=== PATIENT | female | born 1960 | race Caucasian/White ===

== ENCOUNTER 2016-12-28 08:00 | Outpatient (CLI) | payer MEDICAID | END 2016-12-28 23:59 | disposition home or self-care (01) | DX: R30.0 Dysuria (principal) ==

== ENCOUNTER 2016-12-29 09:03 | Outpatient (CLI) | payer MEDICAID | END 2016-12-29 09:04 | disposition home or self-care (01) | DX: R30.0 Dysuria (principal); R19.7 Diarrhea, unspecified; E11.41 Type 2 diabetes mellitus with diabetic mononeuropathy ==

== ENCOUNTER 2017-03-14 09:21 | Outpatient (CLI) | payer MEDICAID | END 2017-03-14 09:22 | disposition home or self-care (01) | DX: I10 Essential (primary) hypertension (principal); E78.5 Hyperlipidemia, unspecified; R30.0 Dysuria; E11.41 Type 2 diabetes mellitus with diabetic mononeuropathy ==

== ENCOUNTER 2017-03-27 14:51 | Outpatient (CLI) | payer MEDICAID ==
--- NOTE | 2017-03-28 11:59 | XRAY Report ---
THREE VIEWS OF THE CERVICAL SPINE: 03/27/2017 CLINICAL HISTORY: Chronic neck pain, back pain. COMPARISON: Cervical spine MRI 09/21/2016. FINDINGS: Cervical spine is seen down to C7-T1 level on lateral view without significant subluxation . Mild anterior spurring is noted at C4. Sthv-nr-fzexgqme anterior spurring is noted at C5. Mild-t o-moderate anterior spurring is noted at the adjacent surfaces of C6-7. Minimal anterior disk space narrowing is noted at the C6-7 level. Mild narrowing is noted between the odontoid process and the a nterior arch of C1. Minimal spurring is noted at the superior tip of the odontoid process and superi or aspect of the adjacent arch of C1. Minimal spurring is noted at the uncinate processes of C5 and C6. Mild vascular calcification is noted at the right carotid artery bifurcation. No significant change is noted as compared to cervical spine MRI of 09/21/2016. IMPRESSION: MILD OSTEOARTHRITIS OF THE C-SPINE WITHOUT CHANGE NOTED COMPARED TO 09/21/2016. JOB #: [id number] EXT JOB #:[id number]
--- NOTE | 2017-03-28 12:29 | XRAY Report ---
THREE-VIEW LUMBAR SPINE, AP, LATERAL, CONED-DOWN LATERAL VIEW OF L5-S1: 03/27/2017 CLINICAL HISTORY: Chronic back pain. COMPARISON: 02/02/2015 CT of the abdomen and pelvis. FINDINGS: Surgical clips are seen in the right upper quadrant of the abdomen relating to a prior cho lecystectomy. Vascular calcification is noted in the abdominal aorta and its iliac branches. Curvil inear calcified sutures are seen to the left side of the lower thoracic spine related to patient's pr ior gastric bypass surgery. Five non-rib bearing lumbar-type vertebrae are noted. Mild anterior spurring is detected in the lumb ar spine. Mild posterior spur formation is seen at L3-4. Minimal spondylolisthesis is noted at L4-5 . This amounts to 2 mm. It is related to osteoarthritis of the facet joints at this level. There i s a suggestion of a moderate degree of osteoarthritis at the facet joints at L5-S1. Mild osteoarthritis is seen at the right SI joint with uchr-ze-pzfxnlkh narrowing of this SI joint an d slight sclerosis noted along the iliac side of the SI joint. Mild progression is noted in the oste oarthritis of the lumbar spine as compared to patient's abdominal and pelvic CT exam of 02/02/2015. On today's exam, patient shows slightly more anterior spur formation. Also, there is mild increased osteoarthritis at the L4-5 and L5 facet joints and there is now minimal spondylolisthesis at L4-5. IMPRESSION: 1. MILD OSTEOARTHRITIS OF THE LUMBAR SPINE IS SEEN WITH MINIMAL PROGRESSION COMPARED TO 5. 2. MINIMAL SPONDYLOLISTHESIS IS NOTED AT L4-5. THIS IS RELATED TO OSTEOARTHRITIS OF THE FACET JOINT S. JOB #: [id number] EXT JOB #:[id number]
--- NOTE | 2017-03-28 14:11 | XRAY Report ---
THORACIC SPINE, TWO VIEWS: 03/27/2017 CLINICAL HISTORY: Chronic back pain. COMPARISON: None. FINDINGS: Anterior spurring is detected especially in the voe-oo-ycvxx thoracic spine with bridging osteophytes. No significant disk space narrowing is seen. No compression fractures are noted. Curvilinear calcifications are seen adjacent to the left transverse process of T12 and L1. These represent calcified sutures related to patient's prior gastric bypass surgery. IMPRESSION: 1. OSTEOARTHRITIS OF THE THORACIC SPINE IS SEEN PRIMARILY MANIFESTED BY BRIDGING OSTEOPHYTES BOTH ANTERIORLY AND LATERALLY. 2. CURVILINEAR CALCIFICATIONS ARE NOTED ADJACENT TO THE LEFT TRANSVERSE PROCESS OF T12 AND L1. THESE ARE CALCIFIED SUTURES RELATED TO PATIENT'S PRIOR GASTRIC BYPASS SURGERY. [facility]
== END 2017-03-27 14:52 | disposition home or self-care (01) ==
LOC: DI 14:51
PROVIDERS: ATTEND Nurse Practitioner Family
DX: M47.892 Other spondylosis, cervical region (principal); M47.896 Other spondylosis, lumbar region; M47.897 Other spondylosis, lumbosacral region; M43.12 Spondylolisthesis, cervical region; M47.894 Other spondylosis, thoracic region
CPT/HCPCS: 72040; 72070; 72100

== ENCOUNTER 2017-04-06 11:21 | Outpatient (CLI) | payer MEDICAID | END 2017-04-06 11:22 | disposition home or self-care (01) | DX: D53.9 Nutritional anemia, unspecified (principal) ==

== ENCOUNTER 2017-05-01 08:25 | Outpatient (CLI) | payer MEDICAID ==
[2017-05-01 10:17] LABS: BASOPHILS % (AUTO) 0.7 %; EOSINOPHILS # (AUTO) 0.2 10^3/uL (0.0-0.7); EOSINOPHILS % (AUTO) 3.6 %; HCT - HEMATOCRIT 34.2 % (37.0-47.0); HGB - HEMOGLOBIN 10.9 g/dL (12.0-16.0); LYMPHOCYTES # (AUTO) 1.7 10^3/uL (1.5-3.5); LYMPHOCYTES % (AUTO) 26.4 %; MEAN CORPUSCULAR HEMOGLOBIN 23.9 pg (27.0-31.0); MEAN CORPUSCULAR HGB CONC 31.9 g/dL (32.0-36.0); MEAN PLATELET VOLUME 10.1 fL (7.9-10.8); MONOCYTES # (AUTO) 0.6 10^3/uL (0.0-1.0); MONOCYTES % (AUTO) 9.7 %; NEUTROPHILS # (AUTO) 3.7 10^3/uL (1.5-6.6); NEUTROPHILS % (AUTO) 59.6 %; RED BLOOD COUNT 4.57 10^6/uL (4.20-5.40); RED CELL DISTRIBUTION WIDTH 18.5 % (12.0-15.0); UNCORRECTED WHITE BLOOD COUNT 6.3 x10^3/uL; WHITE BLOOD COUNT 6.3 x10^3/uL (4.8-10.8)
[2017-05-01 10:51] LABS: IRON 56 ug/dL (28-170); TOTAL IRON BINDING CAPACITY 370 ug/dL (250-450); TRANSFERRIN 264 mg/dL (192-382)
== END 2017-05-01 08:26 | disposition home or self-care (01) ==
LOC: LAB.S 08:25
PROVIDERS: ATTEND Nurse Practitioner Family
DX: D53.9 Nutritional anemia, unspecified (principal)
CPT/HCPCS: 36415; 82728; 83540; 84466; 85025

== ENCOUNTER 2017-05-18 13:45 | Outpatient (CLI) | payer MEDICAID ==
[2017-05-18 18:11] LABS: BILIRUBIN,URINE NEGATIVE (NEGATIVE); PH,URINE 5.5 PH (5.0-7.5)
[2017-05-18 18:30] LABS: UR CULTURE IF IND NOT INDICATED; WBC,URINE 0-3 /HPF (0-5)
== END 2017-05-18 13:46 | disposition home or self-care (01) ==
LOC: LAB.R 13:45
PROVIDERS: ATTEND Nurse Practitioner Family
DX: R30.0 Dysuria (principal)
CPT/HCPCS: 81001; 87086

== ENCOUNTER 2017-06-07 14:32 | Outpatient (CLI) | payer MEDICAID ==
[2017-06-07 18:05] LABS: BASOPHILS % (AUTO) 0.5 %; EOSINOPHILS # (AUTO) 0.2 10^3/uL (0.0-0.7); EOSINOPHILS % (AUTO) 3.5 %; HCT - HEMATOCRIT 37.4 % (37.0-47.0); HGB - HEMOGLOBIN 11.9 g/dL (12.0-16.0); LYMPHOCYTES % (AUTO) 27.9 %; MEAN CORPUSCULAR HEMOGLOBIN 25.3 pg (27.0-31.0); MEAN CORPUSCULAR HGB CONC 31.7 g/dL (32.0-36.0); MEAN CORPUSCULAR VOLUME 79.8 fL (81.0-99.0); MONOCYTES # (AUTO) 0.4 10^3/uL (0.0-1.0); MONOCYTES % (AUTO) 5.7 %; NEUTROPHILS # (AUTO) 4.5 10^3/uL (1.5-6.6); NEUTROPHILS % (AUTO) 62.4 %; RED BLOOD COUNT 4.69 10^6/uL (4.20-5.40); RED CELL DISTRIBUTION WIDTH 20.5 % (12.0-15.0); UNCORRECTED WHITE BLOOD COUNT 7.1 x10^3/uL; WHITE BLOOD COUNT 7.1 x10^3/uL (4.8-10.8)
[2017-06-07 18:23] LABS: IRON 45 ug/dL (28-170); TOTAL IRON BINDING CAPACITY 311 ug/dL (250-450); TRANSFERRIN 222 mg/dL (192-382)
[2017-06-07 18:30] LABS: PLATELET ESTIMATE, MANUAL NORMAL (130-450,000) (NORMAL); PLATELET MORPHOLOGY NORMAL APPEARANCE (NORMAL); WBC MORPHOLOGY (MULTIPLE) NORMAL APPEARANCE (NORMAL)
== END 2017-06-07 14:33 | disposition home or self-care (01) ==
LOC: LAB.F 14:32
PROVIDERS: ATTEND Nurse Practitioner Family
DX: D53.9 Nutritional anemia, unspecified (principal)
CPT/HCPCS: 36415; 82728; 83540; 84466; 85025

== ENCOUNTER 2017-07-03 15:37 | Emergency (ER) | payer MEDICAID ==
[2017-07-03 15:53] VITALS: BP 144/85
--- NOTE | 2017-07-03 16:33 | ED Physician Documentation ---
History of Present Illness - Stated complaint Stated Complaint: RECTAL BLEED - Chief complaint Chief Complaint: General - History obtained from History obtained from: Patient - History of Present Illness Timing: Other (56-year-old woman with history of gastric bypass in 2008 at [facility], had grossly negative colonoscopy with poor prep in 2013. Recently has been getting iron infusions for anemia without clear GI bleeding. Today had small amount of bright red blood per rectum twice.) Review of Systems Constitutional: denies: Fever, Chills GI: reports: Abdominal Pain (preceding the bleeding, brief), Bloody / black stool. 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 HEENT: Tonsil/Adenoidectomy - Present Medications Home Medications: Ambulatory Orders Medication Instructions Recorded Confirmed Insulin Glargine,Hum.rec.anlog 24 unit SQ QDDINNER 08/12/14 06/29/17 [Lantus] Lisinopril [Prinivil] 20 mg PO DAILY 08/12/14 06/29/17 Amlodipine Besylate 5 mg PO DAILY 09/30/14 06/29/17 Cholecalciferol (Vitamin D3) 10,000 unit PO DAILY 09/30/14 06/29/17 [Vitamin D3] Pramipexole Di-HCl [Mirapex] 0.5 mg PO DAILY 09/30/14 06/29/17 Insulin Lispro [Humalog] 2 - 5 unit SQ TIDWM 02/18/15 06/29/17 Lidocaine Patch 5% [Lidoderm Patch] 1 each TOP DAILY #10 patch 10/31/16 06/29/17 Albuterol Sulfate [Proair Hfa 8.5 gm IH QID PRN 04/19/17 06/29/17 Inhaler] - Allergies Allergies/Adverse Reactions: Allergies Allergy/AdvReac Type Severity Reaction Status Date / Time hydromorphone HCl * Allergy Intermediate Nausea/Vomi Verified 07/03/17 15:53 [From Dilaudid] ting morphine Allergy Intermediate Nausea/Vomm Verified 07/03/17 15:53 iting Sulfa (Sulfonamide Allergy Mild Rash/Itchy Verified 07/03/17 15:53 Antibiotics) Penicillins Allergy Unknown Unknown Verified 07/03/17 15:53 eggplant Allergy Intermediate Hives Uncoded 07/03/17 15:53 mosotho cheese Allergy Intermediate Hives Uncoded 07/03/17 15:53 wheat Allergy Intermediate Hives Uncoded 07/03/17 15:53 - Social History Does the pt smoke?: No Smoking Status: Never smoker Does the pt drink ETOH?: No Does the pt have substance abuse?: No - Immunizations Immunizations are current?: Yes - POLST Patient has POLST: No PD ED PE NORMAL - Vitals Vital signs reviewed: Yes - General General: Alert and oriented X 3, No acute distress - Abdomen Abdomen: Normal bowel sounds, Soft, Non tender - Rectal Rectal: Other (deferred as she shows me a small amt of blood on TP) - Derm Derm: No rash - Neuro Neuro: Alert and oriented X 3, Normal speech - Psych Psych: Normal mood, Normal affect Results - Vitals Vitals: Vital Signs - 24 hr 07/03/17 15:48 Temperature 36.2 C L Heart Rate 75 Respiratory 20 Rate Blood Pressure 144/85 H O2 Saturation 99 Oxygen O2 Source Room air - Labs Labs: Laboratory Tests 07/03/17 07/03/17 07/03/17 16:38 16:38 16:38 WBC 6.4 RBC 4.76 Hgb 12.2 Hct 38.0 MCV 79.9 L MCH 25.7 L MCHC 32.2 RDW 19.1 H Plt Count 178 MPV 9.2 Neut # 3.4 Lymph # 2.2 Jefferson # 0.4 Eos # 0.3 Baso # 0.1 Absolute Nucleated RBC 0.00 Nucleated RBCs 0.0 PT 10.7 INR 0.9 Sodium 137 Potassium 3.7 Chloride 101 Carbon Dioxide 29 Anion Gap 7.0 BUN 14 Creatinine 0.6 Estimated GFR (MDRD) 103 Glucose 283 H Calcium 9.4 Total Bilirubin 0.3 AST 26 ALT 27 Alkaline Phosphatase 86 Total Protein 7.5 Albumin 4.0 Globulin 3.5 Albumin/Globulin Ratio 1.1 Lipase 39 PD MEDICAL DECISION MAKING - ED course ED course: 56-year-old woman with history of gastric bypass with a small amount of GI bleeding, lower by description, and visibly small, she is hemodynamically stable with an H&H that is better than recent prior values. Departure - Departure Disposition: 01 Home, Self Care Clinical Impression: History of gastric bypass, Hematochezia, Diabetes 1.5, managed as type 1 Condition: Good Record reviewed to determine appropriate education?: Yes Instructions: ED Hematochezia Stable Follow-Up: Eric Khoury MD [Provider Admit Priv/Credential] - Comments: RETURN FOR HEAVIER BLEEDING. FOLLOWUP WITH DR KHOURY FOR EVALUATION FOR POTENTIAL COLONOSCOPY. Your blood pressure was elevated today on check into the emergency department. This does not mean that you have hypertension, it is a common phenomenon to come to the emergency department and have elevated blood pressure. I recommend that she see her primary care physician within the week to have it rechecked when you are feeling better.
[2017-07-03 16:53] LABS: BASOPHILS # (AUTO) 0.1 10^3/uL (0.0-0.1); BASOPHILS % (AUTO) 1.5 %; EOSINOPHILS # (AUTO) 0.3 10^3/uL (0.0-0.7); EOSINOPHILS % (AUTO) 4.8 %; HGB - HEMOGLOBIN 12.2 g/dL (12.0-16.0); LYMPHOCYTES # (AUTO) 2.2 10^3/uL (1.5-3.5); LYMPHOCYTES % (AUTO) 34.8 %; MEAN CORPUSCULAR HEMOGLOBIN 25.7 pg (27.0-31.0); MEAN CORPUSCULAR HGB CONC 32.2 g/dL (32.0-36.0); MEAN CORPUSCULAR VOLUME 79.9 fL (81.0-99.0); MEAN PLATELET VOLUME 9.2 fL (7.9-10.8); MONOCYTES # (AUTO) 0.4 10^3/uL (0.0-1.0); NEUTROPHILS # (AUTO) 3.4 10^3/uL (1.5-6.6); NEUTROPHILS % (AUTO) 52.9 %; RED BLOOD COUNT 4.76 10^6/uL (4.20-5.40); RED CELL DISTRIBUTION WIDTH 19.1 % (12.0-15.0); UNCORRECTED WHITE BLOOD COUNT 6.4 x10^3/uL; WHITE BLOOD COUNT 6.4 x10^3/uL (4.8-10.8)
[2017-07-03 17:00] LABS: INR 0.9 (0.8-1.2); PT - PROTHROMBIN TIME 10.7 secs (9.9-12.6)
[2017-07-03 17:02] LABS: ALBUMIN/GLOBULIN RATIO 1.1 (1.0-2.2); BILIRUBIN,TOTAL 0.3 mg/dL (0.2-1.0); CALCIUM 9.4 mg/dL (8.5-10.3); CREATININE 0.6 mg/dL (0.4-1.0); POTASSIUM 3.7 mmol/L (3.5-5.0); TOTAL PROTEIN 7.5 g/dL (6.7-8.2)
== END 2017-07-03 17:42 | disposition home or self-care (01) ==
LOC: ED 15:37
DX: K92.1 Melena (principal); E10.9 Type 1 diabetes mellitus without complications; Z79.4 Long term (current) use of insulin; Z98.84 Bariatric surgery status; I10 Essential (primary) hypertension; K21.9 Gastro-esophageal reflux disease without esophagitis; M19.90 Unspecified osteoarthritis, unspecified site
CPT/HCPCS: 36415; 80053; 83690; 85025; 85610; 86850; 86900; 86901; 96365; 99283; J1756

== ENCOUNTER 2018-02-05 08:00 | Outpatient (CLI) | payer MEDICAID ==
[2018-02-05 17:57] LABS: BASOPHILS % (AUTO) 0.5 %; EOSINOPHILS # (AUTO) 0.2 10^3/uL (0.0-0.7); EOSINOPHILS % (AUTO) 3.8 %; HGB - HEMOGLOBIN 13.1 g/dL (12.0-16.0); LYMPHOCYTES # (AUTO) 2.3 10^3/uL (1.5-3.5); LYMPHOCYTES % (AUTO) 39.2 %; MEAN CORPUSCULAR HEMOGLOBIN 27.4 pg (27.0-31.0); MEAN CORPUSCULAR HGB CONC 32.1 g/dL (32.0-36.0); MEAN CORPUSCULAR VOLUME 85.3 fL (81.0-99.0); MEAN PLATELET VOLUME 10.1 fL (7.9-10.8); MONOCYTES # (AUTO) 0.3 10^3/uL (0.0-1.0); MONOCYTES % (AUTO) 5.1 %; NEUTROPHILS % (AUTO) 51.4 %; PLT - PLATELET COUNT 171 10^3/uL (130-450); RED BLOOD COUNT 4.79 10^6/uL (4.20-5.40); RED CELL DISTRIBUTION WIDTH 13.7 % (12.0-15.0); WHITE BLOOD COUNT 5.9 x10^3/uL (4.8-10.8)
[2018-02-05 18:19] LABS: CREATININE,URINE 103.8 mg/dL; MICROALBUM/CREATININE RATIO,UR 12.5 ug/mg (<30.0); MICROALBUMIN,URINE 1.3 mg/dL (0-300.0)
[2018-02-05 18:31] LABS: ALBUMIN 4.2 g/dL (3.2-5.5); ALBUMIN/GLOBULIN RATIO 1.4 (1.0-2.2); ALKALINE PHOSPHATASE 88 IU/L (42-121); ALT ALANINE AMINOTRANSFERASE 50 IU/L (10-60); AST ASPARTATE AMINOTRANSFERASE 29 IU/L (10-42); BILIRUBIN,TOTAL 0.5 mg/dL (0.2-1.0); BUN - BLOOD UREA NITROGEN 12 mg/dL (6-20); CALCIUM 9.3 mg/dL (8.5-10.3); CARBON DIOXIDE - CO2 30 mmol/L (21-32); CHLORIDE 100 mmol/L (101-111); CHOL/HDL RATIO 3.2 (<4.4); CHOLESTEROL 253 mg/dL; CREATININE 0.7 mg/dL (0.4-1.0); GFR - MDRD 86 (>89); GLUCOSE 224 mg/dL (70-100); HDL CHOLESTEROL 79 mg/dL; LDL CHOLESTEROL,CALCULATED 152 mg/dL; LDL/HDL RATIO 1.9 (<4.4); SODIUM 136 mmol/L (135-145); TOTAL PROTEIN 7.2 g/dL (6.7-8.2); VLDL CHOLESTEROL 22 mg/dL
[2018-02-05 19:17] LABS: HB2 TOTAL 13.9 g/dL; HEMOGLOBIN A1C 1.34 g/dL
[2018-02-07 11:42] LABS: % IRON SATURATION 18 % (20-50); IRON 65 ug/dL (28-170); TOTAL IRON BINDING CAPACITY 357 ug/dL (250-450); TRANSFERRIN 255 mg/dL (192-382)
== END 2018-02-05 08:01 | disposition home or self-care (01) ==
LOC: LAB.F 08:00
PROVIDERS: ATTEND Nurse Practitioner Family
DX: E11.41 Type 2 diabetes mellitus with diabetic mononeuropathy (principal); E78.5 Hyperlipidemia, unspecified; F32.9 Major depressive disorder, single episode, unspecified; R53.83 Other fatigue
CPT/HCPCS: 36415; 80053; 80061; 82043; 82570; 83036; 83540; 83721; 84443; 84466; 85025

== ENCOUNTER 2018-05-25 09:39 | Outpatient (CLI) | payer MEDICAID ==
[2018-05-25 17:58] LABS: ALBUMIN 3.8 g/dL (3.2-5.5); ALBUMIN/GLOBULIN RATIO 1.3 (1.0-2.2); ALKALINE PHOSPHATASE 73 IU/L (42-121); ALT ALANINE AMINOTRANSFERASE 39 IU/L (10-60); AST ASPARTATE AMINOTRANSFERASE 32 IU/L (10-42); BILIRUBIN,TOTAL 0.7 mg/dL (0.2-1.0); BUN - BLOOD UREA NITROGEN 12 mg/dL (6-20); CALCIUM 8.9 mg/dL (8.5-10.3); CARBON DIOXIDE - CO2 29 mmol/L (21-32); CHLORIDE 104 mmol/L (101-111); CHOL/HDL RATIO 3.4 (<4.4); CHOLESTEROL 231 mg/dL; CREATININE 0.7 mg/dL (0.4-1.0); GFR - MDRD 86 (>89); GLUCOSE 272 mg/dL (70-100); HDL CHOLESTEROL 68 mg/dL; LDL CHOLESTEROL,CALCULATED 147 mg/dL; LDL/HDL RATIO 2.2 (<4.4); SODIUM 139 mmol/L (135-145); TOTAL PROTEIN 6.7 g/dL (6.7-8.2); VLDL CHOLESTEROL 16 mg/dL
[2018-05-25 18:37] LABS: HB2 TOTAL 12.8 g/dL; HEMOGLOBIN A1C 1.35 g/dL; HEMOGLOBIN A1C % 11.8 % (4.6-6.2)
== END 2018-05-25 09:40 | disposition home or self-care (01) ==
LOC: LAB.F 09:39
PROVIDERS: ATTEND Physician Assistant Medical
DX: E11.41 Type 2 diabetes mellitus with diabetic mononeuropathy (principal); E78.5 Hyperlipidemia, unspecified
CPT/HCPCS: 36415; 80053; 80061; 82043; 83036; 83721

== ENCOUNTER 2019-04-10 12:38 | Outpatient (CLI) | payer SELFPAY ==
[2019-04-10 17:46] LABS: BASOPHILS % (AUTO) 0.6 %; EOSINOPHILS # (AUTO) 0.3 10^3/uL (0.0-0.7); EOSINOPHILS % (AUTO) 4.8 %; HGB - HEMOGLOBIN 12.6 g/dL (12.0-16.0); LYMPHOCYTES # (AUTO) 2.6 10^3/uL (1.5-3.5); LYMPHOCYTES % (AUTO) 37.5 %; MEAN CORPUSCULAR HEMOGLOBIN 27.6 pg (27.0-31.0); MEAN CORPUSCULAR HGB CONC 32.3 g/dL (32.0-36.0); MEAN CORPUSCULAR VOLUME 85.4 fL (81.0-99.0); MEAN PLATELET VOLUME 10.4 fL (7.9-10.8); MONOCYTES # (AUTO) 0.4 10^3/uL (0.0-1.0); MONOCYTES % (AUTO) 6.1 %; NEUTROPHILS # (AUTO) 3.6 10^3/uL (1.5-6.6); PLT - PLATELET COUNT 182 10^3/uL (130-450); RED BLOOD COUNT 4.57 10^6/uL (4.20-5.40); RED CELL DISTRIBUTION WIDTH 13.4 % (12.0-15.0); WHITE BLOOD COUNT 7.1 x10^3/uL (4.8-10.8)
[2019-04-10 17:54] LABS: CALCIUM 9.4 mg/dL (8.5-10.3); CREATININE 0.6 mg/dL (0.4-1.0); MAGNESIUM 2.2 mg/dL (1.7-2.8)
[2019-04-10 18:13] LABS: CREATININE,URINE 124.5 mg/dL; MICROALBUM/CREATININE RATIO,UR 12.9 ug/mg (<30.0); MICROALBUMIN,URINE 1.6 mg/dL (0-300.0)
[2019-04-10 18:54] LABS: HB2 TOTAL 12.8 g/dL; HEMOGLOBIN A1C 1.13 g/dL; HEMOGLOBIN A1C % 10.2 % (4.6-6.2)
== END 2019-04-10 23:59 | disposition home or self-care (01) ==
LOC: LAB.F 12:38
PROVIDERS: ATTEND Physician Assistant Medical
DX: R00.2 Palpitations (principal); E11.41 Type 2 diabetes mellitus with diabetic mononeuropathy; D53.9 Nutritional anemia, unspecified; G25.9 Extrapyramidal and movement disorder, unspecified
CPT/HCPCS: 36415; 80048; 82043; 82570; 82728; 83036; 83735; 85025

== ENCOUNTER 2023-02-20 11:13 | Outpatient (CLI) | payer BC ==
--- NOTE | 2023-02-20 17:45 | DEXA Report ---
PROCEDURE: Dexa Spine and/or Hip INDICATIONS: POST MENOPAUSAL TECHNIQUE: Dual energy x-ray absorptiometry (DXA) was performed on a AB Group System. Regions measur ed are the AP Spine, femoral neck, and if needed forearm. COMPARISON: None. FINDINGS: Lumbar Spine: Bone Mineral Density 1.369 g/cm/cm,T score 1.6, normal Left Femoral Neck: Bone Mineral Density 0.642 g/cm/cm, T score -2.9, osteoporosis Left Hip: Bone Mineral Density 0.809 g/cm/cm,T score -1.6, osteopenia (T score greater or equal to -1.0: NORMAL) (T score from -1.1 to -2.4: OSTEOPENIA) (T score less than or equal to -2.5 to: OSTEOPOROSIS) Impression: Osteoporosis Patients with diagnosis of osteoporosis or osteopenia should have regular bone mineral density assess ment. For those eligible for Medicare, routine testing is allowed once every 2 years. Testing frequ ency can be increased for patients who have rapidly progressing disease or for those who are receivin g medical therapy to restore bone mass. Reviewed by: Kaden Irene MD on 02/20/2023 4:43 PM MARCI Approved by: Kaden Irene MD on 02/20/2023 4:43 PM [email or web address] Station ID: [id number]
--- NOTE | 2023-02-20 18:01 | XRAY Report ---
PROCEDURE: Calcaneus LT INDICATIONS: LEFT FOOT PAIN TECHNIQUE: Two views of the calcaneus were acquired. COMPARISON: FINDINGS: Bones: No fractures or dislocations. No suspicious bony lesions. Posterior and plantar calcaneal s pur Soft tissues: No suspicious calcifications. Achilles tendon appears normal. Calcific atherosclerosi s IMPRESSION: Calcaneal spurring with diffuse calcified atherosclerosis Reviewed by: Kaden Irene MD on 02/20/2023 5:00 PM MARCI Approved by: Kaden Irene MD on 02/20/2023 5:00 PM AKDT Station ID: [id number]
== END 2023-02-20 11:14 | disposition home or self-care (01) ==
LOC: DI 11:13
PROVIDERS: ATTEND Internal Medicine
DX: M77.32 Calcaneal spur, left foot (principal); M81.0 Age-related osteoporosis without current pathological fracture

== ENCOUNTER 2023-03-08 08:57 | Outpatient (CLI) | payer BC ==
--- NOTE | 2023-03-09 10:16 | Mammography Report ---
BILATERAL DIGITAL SCREENING MAMMOGRAM 3D/2D: 03/08/2023 CLINICAL: Routine screening. Comparison is made to exam dated: 09/22/2011 mammogram - [facility]. Both breasts are almost entirely fatty (category a/<25% glandular tissue). There are benign vascular calcifications in both breasts. No significant masses, calcifications, or other findings are seen in either breast. There has been no significant interval change. IMPRESSION: BENIGN There is no mammographic evidence of malignancy. A 1 year screening mammogram is recommended. Based on the Tyrer Cuzick model (a risk assessment model) the patients lifetime risk is 3.8% and her 10 year risk is 1.6%. According to the ACR, ACS, and NCCN guidelines, an annual breast MRI exam edwin g with mammogram is recommended if the patients lifetime risk is 20% or greater. This exam was interpreted at Station ID: [id number]. NOTE: For mammograms, a report in lay terms will be sent to the patient. Approximately 15% of breast malignancies will not be visualized mammographically. In the management of a palpable breast mass, a negative mammogram must not discourage biopsy of a clinically suspicious lesion. Electronically Signed By: Maria E treviño/alan:03/09/2023 08:51:07 letter sent: No_Letter ACR BI-RADS Category 2: Benign Finding(s) 3342F PARENCHYMAL PATTERN: (F) - The breast(s) demonstrate(s) diffuse fatty replacement. BI-RADS CATEGORY: (2) - 2 Mammogram [id number] 1 year screening LATERALITY: (B)
== END 2023-03-08 08:58 | disposition home or self-care (01) ==
LOC: DI 08:57
PROVIDERS: ATTEND Internal Medicine
DX: Z12.31 Encounter for screening mammogram for malignant neoplasm of breast (principal)

== ENCOUNTER 2023-09-09 07:02 | Emergency (ER) | payer BC ==
[2023-09-09 07:16] VITALS: BP 158/74; O2SAT 100
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
[2023-09-09] MEDS ORDERED: ERYTHROMYCIN OPHTH OINT 1 GM TUBE RIGHTEYE STA (07:59)
== END 2023-09-09 08:39 | disposition home or self-care (01) ==
LOC: ED 07:02
DX: S05.01XA Injury of conjunctiva and corneal abrasion without foreign body, right eye, initial encounter (principal); W50.0XXA Accidental hit or strike by another person, initial encounter; I10 Essential (primary) hypertension; E10.9 Type 1 diabetes mellitus without complications; Z79.899 Other long term (current) drug therapy
CPT/HCPCS: 99282; 99283; J3490